=== PATIENT | female | born 1985 | race Caucasian/White ===

== ENCOUNTER 2016-08-25 13:06 | Outpatient (RCR) | payer BC | END 2016-09-10 | disposition home or self-care (01) | PROVIDERS: ATTEND Internal Medicine | DX: M54.5 Low back pain (principal) ==

== ENCOUNTER → 2016-10-02 | Outpatient (CLI) | payer BC ==
--- NOTE | 2016-10-02 12:01 | Diagnostic Imaging Report ---
PROCEDURE: MRI lumbar spine. TECHNIQUE: Multiplanar, multisequence MRI of the lumbar spine was performed without contrast. INDICATION: Back pain. COMPARISON: There are no prior studies available for comparison. FINDINGS: The reconstructed parasagittal images show the vertebral body heights and alignment to be generally within normal limits. There is desiccation of the disc at every level, and there is mild narrowing of the disc spaces at L2-3, L3-4, and L5-S1. Furthermore, the thecal sac is slender. This is most likely a developmental variant. At the L5-S1 level, there is a disc protrusion to the right. The disc compresses the right ventral aspect of the thecal sac and narrows the AP diameter to 5.4 mm. The disc material is also in close proximity to the exiting right nerve root, and there may be encroachment of the exiting right nerve root at this level. Furthermore, at the L3-4 level, there is a prominent disc bulge centrally. The disc indents the ventral aspect of the thecal sac and narrows the AP diameter to 4.4 mm. There is no neural foraminal narrowing at this level. At the L2-3 level, there is also a disc bulge centrally. The disc indents the ventral aspect of the thecal sac and narrows the AP diameter to 6.2 mm. At the L4-5 level, there is a slight disc bulge centrally. The disc flattens the ventral aspect of the thecal sac and narrows the AP diameter to 8.9 mm. There is mild narrowing of the neural foramen bilaterally at this level. At the L1-2 level, there is no evidence for spinal stenosis or nerve root encroachment. There is no abnormal signal arising from the cord or the vertebral bodies to indicate an acute abnormality. There is no sign of a paraspinal mass. IMPRESSION: 1. There is degenerative disc and bony disease at L2-3, L3-4, and L5-S1. There is spinal stenosis at all three of these levels with the L5-S1 level being the most severely affected. There is also narrowing of the neural foramen on the right at L5-S1, and there may be encroachment of the exiting right nerve root. 2. These results were discussed with Dr. Ordonez. Dictated by: Dictated on workstation # [id number]
== END ==
LOC: RAD 08:30
PROVIDERS: ATTEND Internal Medicine
DX: M51.36 Other intervertebral disc degeneration, lumbar region (principal); M48.06 Spinal stenosis, lumbar region
CPT/HCPCS: 72148